=== PATIENT | male | born 2000 | race Caucasian/White ===

== ENCOUNTER 2022-04-18 23:33 | Emergency (ER) | payer OTHER ==
[~2022-04-18] VITALS: Ht 175.3 cm; Wt 77.1 kg
[2022-04-19] MEDS ORDERED: FLUT.05NI (01:55)
== END 2022-04-19 02:14 | disposition home or self-care (01) ==
LOC: ER 23:33
DX: J32.9 Chronic sinusitis, unspecified (principal); Z88.0 Allergy status to penicillin; Z88.8 Allergy status to other drugs, medicaments and biological substances
CPT/HCPCS: 99282

== ENCOUNTER 2022-04-21 14:27 | Emergency (ER) | payer OTHER ==
[~2022-04-21] VITALS: Ht 175.3 cm; Wt 77.1 kg
[~2022-04-21 14:27] MED LIST: FLUT.05NI
[2022-04-21 15:48] LABS: Influenza B, PCR NEGATIVE (NEGATIVE); Resp Syncytial Virus, PCR NEGATIVE (NEGATIVE); SARS-Cov-2 (COVID-19) PCR, MMC NEGATIVE (NEGATIVE)
[2022-04-21 16:27] LABS: Influenza A, PCR POSITIVE (NEGATIVE)
== END 2022-04-21 18:07 | disposition home or self-care (01) ==
LOC: ER 14:27
PROVIDERS: Student in an Organized Health Care Education/Training Program
DX: J10.1 Influenza due to other identified influenza virus with other respiratory manifestations (principal); Z20.822 Contact with and (suspected) exposure to COVID-19; Z88.0 Allergy status to penicillin; Z88.8 Allergy status to other drugs, medicaments and biological substances
CPT/HCPCS: 0241U; A9270

== ENCOUNTER 2023-01-12 15:09 | Emergency (ER) | payer OTHER ==
[~2023-01-12] VITALS: Ht 175.3 cm; Wt 81.7 kg
[2023-01-12 15:21] VITALS: BP 132/103
[2023-01-12] MEDS ORDERED: CEFU250T47 PO (16:57)
== END 2023-01-12 17:11 | disposition home or self-care (01) ==
LOC: ER 15:09
DX: J02.0 Streptococcal pharyngitis (principal); Z88.0 Allergy status to penicillin; Z88.8 Allergy status to other drugs, medicaments and biological substances; Z87.891 Personal history of nicotine dependence
CPT/HCPCS: 87430; 99283; J1100

== ENCOUNTER 2023-11-27 18:48 | Emergency (ER) | payer OTHER ==
[~2023-11-27] VITALS: Ht 175.3 cm; Wt 81.7 kg
[~2023-11-27 18:48] MED LIST changes: +CEFU250T47 PO
[2023-11-27 19:16] VITALS: BP 136/94
[2023-11-27] MEDS ORDERED: SILVADENE20 G1 TOP (19:20)
== END 2023-11-27 19:20 | disposition home or self-care (01) ==
LOC: ER 18:48
DX: T22.012A Burn of unspecified degree of left forearm, initial encounter (principal); Z88.0 Allergy status to penicillin; Z88.8 Allergy status to other drugs, medicaments and biological substances; Z79.899 Other long term (current) drug therapy
CPT/HCPCS: 99283